=== PATIENT | male | born 1965 | race Caucasian/White ===

== ENCOUNTER 2019-11-29 14:33 | Inpatient (IN) | payer MEDICAID, OTHER ==
[~2019-11-29] VITALS: Ht 175.3 cm; Wt 174.5 kg
[2019-11-29 15:35] LABS: Basophils # (auto) 0.1 10 ^3/uL (0-0.2); Eosinophils # (auto) 0.5 10 ^3/uL (0-0.8); Eosinophils % (auto) 4.8 % (0.0-7.0); Hematocrit 34.4 % (41.0-53.0); Hemoglobin 11.5 g/dL (13.5-17.5); Lymphocytes # (auto) 2.2 10 ^3/uL (0.4-5.4); Lymphocytes % (auto) 22.9 % (10.0-50.0); Mean Corpuscular Hemoglobin 30.2 pg (28.0-32.0); Mean Corpuscular Hgb Conc. 33.5 g/dL (32.0-36.0); Mean Corpuscular Volume 90.1 fL (80.0-100.0); Monocytes # (auto) 0.9 10 ^3/uL (0-1.3); Monocytes % (auto) 9.7 % (0.0-12.0); Neutrophils % (auto) 61.6 % (37.0-80.0); Platelet Count (auto) 356 10^3/uL (140-450); Red Blood Cells 3.81 10^6/uL (4.5-5.90); Red Cell Distribution Width 14.4 % (11.8-14.3); White Blood Cell 9.7 10^3/uL (4.4-10.8)
[2019-11-29] MEDS ORDERED: SODIUM CHLORIDE 0.9% 500 ML IV ONE (15:39)
[2019-11-29 15:45] LABS: Albumin 3.2 g/dL (3.4-5.0); BUN/Creatinine Ratio 15.5; Calcium 8.3 mg/dL (8.5-10.1); Potassium 5.2 mmol/L (3.5-5.1)
[2019-11-29 15:48] LABS: Bilirubin, Total 0.3 mg/dL (0.2-1.0)
[2019-11-29] MEDS ORDERED: VANCOMYCIN 1GM/250ML 250 ML IV ONE (18:30)
[2019-11-29] MEDS ORDERED: NITROGLYCERIN 0.4 MG SL TAB SL PRN (18:30)
[2019-11-29] MEDS ORDERED: VANCOMYCIN PER PHARMACY 0 MG IV SCH (18:30)
[2019-11-29] MEDS ORDERED: DEXTROSE (50%) 50ML SYRG IV PRN (18:30)
[2019-11-29] MEDS ORDERED: ACETAMINOPHEN 500 MG TAB PO PRN (18:30)
[2019-11-29] MEDS ORDERED: HYDROcodone-ACET 5/325MG TAB PO PRN (18:30)
[2019-11-29] MEDS ORDERED: MORPHINE SULF INJ 2 MG/ML SYRINGE 1ML IV PRN ×2 (18:30)
[2019-11-29] MEDS ORDERED: PROMETHAZINE HCL 25 MG/ML 1ML IV PRN (18:30)
[2019-11-29] MEDS ORDERED: PIPERACILLIN-TAZOB 3.375GM 100 ML IV ONE (18:30)
[2019-11-29] MEDS: SODIUM CHLORIDE 0.9% 1,000 ML IV SCH (18:52)
[2019-11-29] MEDS: FAMOTIDINE (10MG/ML) 2ML VL IV SCH (18:58)
--- NOTE | 2019-11-29 20:05 | NUR ---
PATIENT ARRIVED TO UNIT FROM EMERGENCY ROOM VIA GURNEY. HE IS AO X4. HE IS CURRENTLY ON ROOM AIR WITH NO COMPLAINTS OF SHORTNESS OF BREATH. HE HAS PITTING EDEMA TO BILATERAL LEGS AND FEET OF 2-3+. HE HAS SMALL WOUNDS TO BOTH BILATERAL SHINS. HE HAS NO CURRENT COMPLAINTS OF PAIN. BED IS LOCKED IN LOWEST POSITION WITH SIDE RAILS UP X2. WILL CONTINUE TO MONITOR.
--- NOTE | 2019-11-29 20:20 | NUR ---
[facility] SWAB SENT TO LAB.
[2019-11-29 22:05] VITALS: BP 146/93
[2019-11-29] MEDS ORDERED: CAR125T PO (22:29)
[2019-11-29] MEDS ORDERED: AML5T PO (22:29)
[2019-11-29] MEDS ORDERED: INS7030I SC (22:29)
[2019-11-29] MEDS ORDERED: BACL10TA PO (22:29)
[2019-11-29] MEDS ORDERED: GLIP5TAB12 PO (22:29)
[2019-11-29] MEDS ORDERED: ASPI-404 PO (22:29)
[2019-11-29] MEDS ORDERED: METF-371 PO (22:29)
[2019-11-29] MEDS: PIPERACILLIN-TAZOB 3.375GM 100 ML IV SCH (23:46)
[2019-11-30] MEDS: ACCU-CHEK COMFORT CURVE STRIP VI SCH ×3 (00:05→12:38)
[2019-11-30] MEDS: SODIUM CHLORIDE 0.9% 1,000 ML IV SCH (04:25)
--- NOTE | 2019-11-30 04:27 | NUR ---
CALL PLACED TO HOSPITALIST FOR ELEVATED BLOOD PRESSURE OF 199/91 AND A RECHECK OF 181/87 HEART RATE OF 84. AWAITING CALLBACK. FLUIDS HAVE BEEN HELD AT THIS TIME.
[2019-11-30 04:44] VITALS: BP 181/87
--- NOTE | 2019-11-30 04:53 | NUR ---
ORDERS RECEIVED TO RESTART HOME BLOOD PRESSURE MEDICATIONS AND GIVE 1 DOSE NOW.
[2019-11-30] MEDS ORDERED: CARVEDILOL 12.5 MG TAB PO ONE (05:00)
[2019-11-30] MEDS ORDERED: amLODIPine BESYLATE 5 MG TAB PO ONE (05:00)
[2019-11-30 05:43] VITALS: BP 147/77
[2019-11-30] MEDS: InsuLIN REG 1unit/0.01ml Soln (100units/ml) SC SCH ×3 (06:00→13:01)
[2019-11-30] MEDS: PIPERACILLIN-TAZOB 3.375GM 100 ML IV SCH ×2 (06:16→12:38)
[2019-11-30] MEDS: FAMOTIDINE (10MG/ML) 2ML VL IV SCH (06:42)
--- NOTE | 2019-11-30 07:15 | NUR ---
opening shift note Care of patient assumed from NOC SHAMIR King. Patient is AOx4, exhibiting no s/s of pain, sob, or distress. Bed is in lowest locked position, side rails up x2, call light within reach. Updated patient on plan of care and patient verbalized understanding. Will continue to monitor q1hr and PRN.
[2019-11-30 09:00] VITALS: BP 134/88
[2019-11-30 10:00] LABS: Basophils # (auto) 0.1 10 ^3/uL (0-0.2); Basophils % (auto) 1.2 % (0.0-2.0); Eosinophils # (auto) 0.4 10 ^3/uL (0-0.8); Eosinophils % (auto) 3.7 % (0.0-7.0); Hematocrit 34.6 % (41.0-53.0); Hemoglobin 11.8 g/dL (13.5-17.5); Lymphocytes # (auto) 1.7 10 ^3/uL (0.4-5.4); Mean Corpuscular Hemoglobin 30.3 pg (28.0-32.0); Mean Corpuscular Hgb Conc. 33.9 g/dL (32.0-36.0); Mean Corpuscular Volume 89.2 fL (80.0-100.0); Monocytes # (auto) 0.8 10 ^3/uL (0-1.3); Monocytes % (auto) 6.9 % (0.0-12.0); Neutrophils # (auto) 8.5 10 ^3/uL (1.6-8.6); Neutrophils % (auto) 73.2 % (37.0-80.0); Platelet Count (auto) 358 10^3/uL (140-450); Red Blood Cells 3.88 10^6/uL (4.5-5.90); Red Cell Distribution Width 14.6 % (11.8-14.3); White Blood Cell 11.6 10^3/uL (4.4-10.8)
[2019-11-30] MEDS ORDERED: VANCOMYCIN 1GM/250ML 250 ML IV SCH (10:00)
[2019-11-30 10:17] LABS: Albumin 3.2 g/dL (3.4-5.0); BUN/Creatinine Ratio 13.4; Calcium 8.7 mg/dL (8.5-10.1); Potassium 5.1 mmol/L (3.5-5.1)
[2019-11-30 10:19] LABS: Bilirubin, Total 0.6 mg/dL (0.2-1.0); Total Protein 7.3 g/dL (6.4-8.2)
--- NOTE | 2019-11-30 12:17 | NUR ---
WOUND CARE NOTE: Wound care in to see patient per wound care request regarding "cellulitis to lower extremities." Bedside nurse took photograph of patient's wounds upon admission for reference. Patient is 54 years old male with admitting diagnosis of Abdominal Pain, Abd Wall Cellulitis. Patient with history of DM, Umbilical hernia,Dyslipidemia,Htn, Anemia. Patient is resting in bed in Rm. 249A. Patient is awake, alert and oriented. Patient is in no stated pain at this time. Patient reported that he's ambulatory. He's self turning and repositioning. His Franklin score is 18. Patient noted with well approximated incision to Rt lateral flank 10 days s/p Rt renal mass resection at [facility]. Patient's incision has intact steri steri strips. Patient's BLE noted erythremic and edematous with multi small (0.6x0.5cm) open draining wounds to Rt borrego. Wounds are red, open partial thickness with bright red macerated karla wound, minimal serous drainage noted,no odor noted. Patient reported that her leg problem is off and on "for a year and half" as he stays seated most of the time. Patient's wound/skin care education provided, vernalized understanding. Cleansed patient's Rt borrego open draining wounds with wound cleanser,patted dry with sterile gauze, applied Thera honey gauze, covered with abd pad and secured with stockinette. Elevated BLE on pillows. Patient tolerated well. RECOMMENDATION: Nursing to continue with EOD/PRN dressing change to Rt borrego wound per MD order, Dietary consult for wounds, elevate affected extremity on pillows, redistribute pressure points with pillows, continue monitoring by wound care while patient is hospitalized. Addendum: 11/30/19 at 1617 by Ella Leyva RN Amended: Links added.
[2019-11-30 13:00] VITALS: BP 150/87
--- NOTE | 2019-11-30 13:50 | NUR ---
IV insertion IV access obtained, via clean sterile technique by inserting 22 gauge catheter at lEFT WRIST after 5 attempts. IV secured properly. No trauma to site. Patient tolerated well.
--- NOTE | 2019-11-30 16:00 | NUR ---
Patient stated that he is leaving against medical advice. Educated on the risks of leaving, patient verbalized understanding.
--- NOTE | 2019-11-30 16:05 | NUR ---
Called MD Escobedo and notified him about patient leaving AMA.
[2019-11-30 17:00] VITALS: BP 153/73
[2019-11-30] MEDS ORDERED: CARVEDILOL 12.5 MG TAB PO SCH (22:00)
[2019-12-01] MEDS ORDERED: amLODIPine BESYLATE 5 MG TAB PO SCH (10:00)
== END 2019-11-30 16:40 | disposition left against medical advice (07) | DRG 383 ==
LOC: ER 14:33 → TELE 14:34 → TELE-EAST 19:54
PROVIDERS: ADMIT Internal Medicine; ATTEND Internal Medicine
DX: L03.311 Cellulitis of abdominal wall (principal); N17.9 Acute kidney failure, unspecified; E11.649 Type 2 diabetes mellitus with hypoglycemia without coma; E11.65 Type 2 diabetes mellitus with hyperglycemia; E87.5 Hyperkalemia; E78.5 Hyperlipidemia, unspecified; E66.01 Morbid (severe) obesity due to excess calories; K42.9 Umbilical hernia without obstruction or gangrene; E87.1 Hypo-osmolality and hyponatremia; D72.829 Elevated white blood cell count, unspecified; E78.00 Pure hypercholesterolemia, unspecified; I10 Essential (primary) hypertension; Z53.29 Procedure and treatment not carried out because of patient's decision for other reasons; Z90.5 Acquired absence of kidney; Z83.3 Family history of diabetes mellitus; Z82.3 Family history of stroke; Z82.49 Family history of ischemic heart disease and other diseases of the circulatory system; Z68.43 Body mass index [BMI] 50.0-59.9, adult
CPT/HCPCS: 36415; 71045; 74176; 80053; 82962; 83036; 83690; 85025; 87040; 87081; 87086; 96361; 96365; 96375; G0378; J1815; J2543; J3490